=== PATIENT | male | born 1960 | race Caucasian/White ===

== ENCOUNTER 2022-08-08 14:26 | Outpatient (CLI) | payer BC, SELFPAY ==
--- NOTE | ~2022-08-08 | XR_ITS ---
XR cervical spine 4-5V DATE: 08/08/2022 15:03 INDICATION: Neck pain. Burning, tingling between scapulae. TECHNIQUE: AP, open-mouth, lateral, swimmer views COMPARISON: None FINDINGS: C1 and C2 are normally aligned and the odontoid process is intact. No fracture or dislocati on or locked facet or prevertebral soft tissue swelling. Cervical interspaces are preserved. IMPRESSION: No significant abnormality Reviewed, dictated and finalized at location L. ING HAND IMPRESSION: No significant abnormality
== END 2022-08-08 14:27 | disposition home or self-care (01) ==
PROVIDERS: PCP Family Medicine; Visit Provider Family Medicine
DX: M54.12 Radiculopathy, cervical region (principal); M43.02 Spondylolysis, cervical region
CPT/HCPCS: 72050

== ENCOUNTER 2023-11-25 09:53 | Outpatient (CLI) | payer MEDICARE, BC, SELFPAY ==
--- NOTE | ~2023-11-25 | XR_ITS ---
Clinical Indication: Chest pain PA and lateral views of the chest: Comparison: None Findings: The lungs are clear, without evidence of focal consolidation or pleural effusion. Cardiome diastinal silhouette is within normal limits. Bones and soft tissues are unremarkable. Impression: Normal chest. Reviewed, dictated and finalized at location . Impression: Normal chest.
== END 2023-11-25 09:54 | disposition home or self-care (01) ==
PROVIDERS: PCP Family Medicine; Visit Provider Family Medicine
DX: R07.2 Precordial pain (principal)
CPT/HCPCS: 71046

== ENCOUNTER 2024-01-19 09:34 | Outpatient (CLI) | payer MEDICARE, BC, SELFPAY ==
--- NOTE | ~2024-01-19 | NM_ITS ---
EXAMINATION: NM sylvain stress w perfusion DATE: 01/19/2024 11:55 INDICATION: Chest pain on exertion. TECHNIQUE: Rest images were obtained following intravenous administration of 9.44 mCi Tc99m tetrofosm in (Myoview). The patient was infused intravenously with Lexiscan (regadenoson). Then, 30.3 mCi Tc99m tetrofosmin (Myoview) was administered intravenously, and supine and prone stress images were obtain ed. Data was reconstructed into short axis and horizontal and vertical long axis SPECT images. Gated SPECT images were also obtained. COMPARISON: None. FINDINGS: There is a large, severe, reversible perfusion defect involving left ventricular apex, the apical segments, and mid anterior and mid anteroseptal segments, consistent with ischemia. There is no segmental wall motion abnormality. Left ventricular ejection fraction measures 60%. IMPRESSION: 1. Large area of severe ischemia involving left ventricular apex, the apical segments, and mid anteri or and mid anteroseptal segments. 2. Normal left ventricular ejection fraction measuring 60%. Reviewed, dictated and finalized at location A. IMPRESSION: 1. Large area of severe ischemia involving left ventricular apex, the apical se gments, and mid anterior and mid anteroseptal segments. 2. Normal left ventricular ejection fraction measuring 60%.
--- NOTE | 2024-01-19 09:45 | EST_ITS ---
Patient Info Name: Missael Skelton Age: 63 years : 1960 Gender: Male Ht: 71 in Wt: 190 lbs BSA: 2.09 m2 HR: 46 bpm BP: 120 / 78 mmHg Heart Rhythm: Sinus Rhythm Exam Date: 01/19/2024 10:33 AM Exam Location: Echo Lab Patient Status: Outpatient Admit Date: 01/19/2024 Staff Ordering Physician: Kassandra Nicole MD Attending Provider: Kassandra Nicole MD Exercise Technologist: Unique Franz CT Exercise Physician: Gentry Toth DO Exam Type: CA stress test treadmill w NM Study Info Indications Z82.49 - Family history of ischemic heart disease and other diseases of the circulatory system A nuclear stress test was performed. Summary 1. 1. Abnormal Joseph exercise stress test for ischemic ST changes by ECG criteria. 2. 2. Reduced functional capacity, and limited by symptoms and ST depressions. 3. 3. Appropriate HR response to exercise. 4. 4. Appropriate HR recovery at 1 minute post exercise. 5. 5. Nuclear scan to follow and will be reported separately. Please correlate with it. 6. 6. Patient informed of the above results. Protocol: Joseph Stress ECG Details Stage: REST Duration (min): 1 min : 17 sec Speed (mph): 0.0 Grade (%): 0 HR (bpm): 48 SBP (mmHg): 120 DBP (mmHg): 78 METS: --- Stage: REST Duration (min): 11 min : 39 sec Speed (mph): 0.0 Grade (%): 0 HR (bpm): 55 SBP (mmHg): 120 DBP (mmHg): 78 METS: --- Stage: STAGE 1 Duration (min): 1 min : 0 sec Speed (mph): 1.7 Grade (%): 10 HR (bpm): 80 SBP (mmHg): 120 DBP (mmHg): 78 METS: --- Stage: STAGE 1 Duration (min): 2 min : 0 sec Speed (mph): 1.7 Grade (%): 10 HR (bpm): 85 SBP (mmHg): 120 DBP (mmHg): 78 METS: --- Stage: STAGE 1 Duration (min): 3 min : 0 sec Speed (mph): 1.7 Grade (%): 10 HR (bpm): 85 SBP (mmHg): 140 DBP (mmHg): 80 METS: --- Stage: STAGE 2 Duration (min): 1 min : 0 sec Speed (mph): 2.5 Grade (%): 12 HR (bpm): 95 SBP (mmHg): 140 DBP (mmHg): 80 METS: --- Stage: STAGE 2 Duration (min): 2 min : 0 sec Speed (mph): 2.5 Grade (%): 12 HR (bpm): 98 SBP (mmHg): 147 DBP (mmHg): 76 METS: --- Stage: STAGE 2 Duration (min): 3 min : 0 sec Speed (mph): 2.5 Grade (%): 12 HR (bpm): 105 SBP (mmHg): 147 DBP (mmHg): 76 METS: --- Stage: STAGE 3 Duration (min): 0 min : 30 sec Speed (mph): 3.4 Grade (%): 14 HR (bpm): 107 SBP (mmHg): 147 DBP (mmHg): 76 METS: --- Stage: RECOVERY Duration (min): 0 min : 29 sec Speed (mph): 0.0 Grade (%): 0 HR (bpm): 102 SBP (mmHg): 161 DBP (mmHg): 72 METS: --- Stage: RECOVERY Duration (min): 1 min : 29 sec Speed (mph): 0.0 Grade (%): 0 HR (bpm): 63 SBP (mmHg): 161 DBP (mmHg): 72 METS: --- Stage: RECOVERY Duration (min): 2 min : 29 sec Speed (mph): 0.0 Grade (%): 0 HR (bpm): 54 SBP (mmHg): 161 DBP (mmHg): 72 METS: --- Stage: RECOVERY
== END 2024-01-19 09:35 | disposition home or self-care (01) ==
PROVIDERS: PCP Family Medicine; Visit Provider Family Medicine
DX: R07.2 Precordial pain (principal); I99.8 Other disorder of circulatory system; Z82.49 Family history of ischemic heart disease and other diseases of the circulatory system
CPT/HCPCS: 78452; 93017; A9502

== ENCOUNTER 2024-02-09 09:25 | Observation (INO) | payer MEDICARE, BC, SELFPAY ==
[2024-02-09] VITALS (33 sets, daily range): BP systolic 107–149; BP diastolic 50–100; PULSE 46–66; RESP 11–21; TEMP 36.2–37.1; O2SAT 96–100; BMI 26.6
[2024-02-09 07:28] LABS: Basophils Percent Auto 0.5 % (0.2-1.2); Eosinophils Absolute Auto 0.1 K/mm3 (0-0.3); Eosinophils Percent Auto 1.3 % (0-4.4); Hematocrit 46.3 % (42.0-52.0); Hemoglobin 15.2 g/dL (14.0-18.0); Immature Granulocyte Absolute 0.01 K/mm3 (0.00-0.031); Immature Granulocyte Percent A 0.2 % (0-0.5); Lymphocytes Absolute Auto 1.63 K/mm3 (0.9-3.2); Lymphocytes Percent Auto 27.3 % (18.3-44.2); Mean Corpuscular HGB Conc 32.8 g/dl (32-36); Mean Corpuscular Hemoglobin 29.7 pg (26-34); Mean Corpuscular Volume 90.6 fl (80-100); Mean Platelet Volume 10.5 fl (7.4-10.4); Monocytes Absolute Auto 0.5 K/mm3 (0.1-0.6); Monocytes Percent Auto 8.7 % (2.6-8.5); Neutrophils Absolute Auto 3.7 K/mm3 (1.3-6.7); Platelet Count Result 183 k/mm3 (150-375); Red Blood Count 5.11 M/mm3 (4.6-6.20); Red Cell Distribution Width 13.1 % (11.5-14.5)
[2024-02-09 07:42] LABS: Anion Gap 10 mmol/L (4-12); Blood Urea Nitrogen 17 mg/dL (9-20); Calcium 8.8 mg/dL (8.4-10.2); Carbon Dioxide 28 mmol/L (22-30); Chloride 103 mmol/L (98-107); Estimated CRCL calculation 69 ml/min; Estimated Glomerular Filt Rate > 60; Glucose 108 mg/dL (65-110); Sodium 141 mmol/L (137-145)
--- NOTE | 2024-02-09 08:11 | WPDMODSED ---
Moderate Sedation Note-Pt Data Patient Data Diagnosis: Exertional angina Abnormal stress test Present Complaint: Exertional chest pain Procedure to be performed/Plan: Left heart catheterization Allergies Allergy/AdvReac Type Severity Reaction Status Date / Time Latex, Natural Rubber Allergy Rash Verified 02/09/24 07:18 Home Medications Medication Instructions Recorded Confirmed Type aspirin 81 mg tablet,delayed 81 mg PO DAILY #90 tabs 01/19/24 02/09/24 Rx release nitroglycerin 0.4 mg sublingual 0.4 mg sublingual Q5M PRN chest 01/19/24 02/09/24 Rx tablet pain #20 tabs rosuvastatin 10 mg tablet 10 mg PO HS 02/09/24 02/09/24 History Current Medications: Active Medications Sodium Chloride (Normal Saline Iv) 500 mls @ 100 mls/hr IV CONT .Q5H RASHEED Sedation/Anesthesia: No previous sedation/anesthesia problems (including family history). [facility] Past Medical History Medical History (Updated 11/26/23 @ 00:41 by Kassandra Nicole MD) Brachial (cervical) neuritis Colon cancer screening Deviated septum Elevated random blood glucose level Encounter for vitamin deficiency screening Lipid screening Palpitations SCC (squamous cell carcinoma), trunk Strain of left trapezius muscle Tinnitus Family History Family History Sibling Patient's sister is in good health Father Family history of cardiovascular disease Family history of chronic obstructive pulmonary disease Mother Family history of chronic obstructive pulmonary disease Family history of cardiovascular disease Family history of arthritis Social History Social History Social History: Smoking status: Never smoker Second hand tobacco smoke exposure: No Alcohol intake: current Alcohol use details: Rarely Substance use: never Substance use type: does not use Do You Feel Safe in your Home?: Yes Lack of Transportation: No Lack of Food: Never True Current Housing: I Have Housing Concerned About Future Housing: No Difficulty Paying Gas/Electric Bills: No Difficulty Paying for Meds: No Currently Unemployed: No Education: Don't Know Difficulty w/ Childcare or Family Care: No Living arrangements: with family Occupation/Education: retired Gender identity (if verbalized by the patient): Male Sexual Orientation (if Verbalized by the Patient): Straight or Heterosexual Spiritual care concerns: No Mod Sed Physical Exam Physical Exam Pre Procedural Exam: Normal: Appearance, Throat, Airway, Lungs, Heart Size, Heart Rate, Heart Rhythm, Neuro Exam and Extremities Hours since solid foods: 12 Hours since liquid intake: 12 Mallampati Classification: class II Internal Medicine - PN: Obj Da Vital Signs Vital Signs: Vital Signs - 24 hr 02/09/24 07:00 Temperature 36.2 C L Pulse Rate 60 Respiratory Rate 12 Blood Pressure 137/72 Pulse Oximetry 96 Oxygen Delivery Room Air Intake/Output Intake/Output: Intake & Output 02/06/24 02/07/24 02/08/24 02/09/24 23:59 23:59 23:59 23:59 Intake Total 0 Balance 0 Meds/Results Medications: Active Medications Generic Name Dose Route Start Last Admin Trade Name Freq PRN Reason Stop Dose Admin Sodium Chloride 500 mls @ 100 mls/hr 02/09/24 07:00 Normal Saline Iv IV CONT .Q5H RASHEED Labs 02/09/24 07:23 02/09/24 07:23 Labs: Laboratory Results - last 24 hr 02/09/24 07:23 WBC 6.0 RBC 5.11 Hgb 15.2 Hct 46.3 MCV 90.6 MCH 29.7 MCHC 32.8 RDW 13.1 Plt Count 183 MPV 10.5 H Immature Gran % (Auto) 0.2 Neut % (Auto) 62.0 Lymph % (Auto) 27.3 [place] % (Auto) 8.7 H Eos % (Auto) 1.3 Baso % (Auto) 0.5 Lymph # (Auto) 1.63 [place] # (Auto) 0.5 Eos # (Auto) 0.1 Baso # (Auto) 0.0 Abs Immat Gran (auto) 0.01 Absolute Neuts (auto) 3.7 Absolute Nucleated RBC 0.000 Nucleated RB
--- NOTE | 2024-02-09 09:25 | ECG_ITS ---
Test Date: 2024-02-09 13:15:27 Measurements Intervals [place] Rate: 49 P: 43 LA: 162 QRS: 59 QRSD: 114 T: 30 QT: 421 QTc: 382 Interpretive Statements SINUS BRADYCARDIA INTRAVENTRICULAR CONDUCTION DELAY ABNORMAL ECG No previous ECG available for comparison Electronically Signed On 02-09-2024 13:18:07 CDT by Gentry Toth D.O.
--- NOTE | 2024-02-09 09:34 | WPDCARDPROC ---
Cardiac Cath Procedure Note Date of procedure:: 02/09/24 Performing physician:: Paulie Fuentes MD Indication:: exertional angina abnormal stress test Brief clinical history:: this is a 63-year-old man with a 6-9 month history of exertional chest pain typical of angina. A recent exercise nuclear stress test was abnormal consistent with anterior ischemia. In this setting angiography has been recommended Procedure Procedure performed:: left ventriculography coronary angiography PCI (HOLLAND) to proximal LAD Sedation/Medication given:: fentanyl 50 mg Versed 2 mg case start time 8:46 a.m. case end time 9:20 a.m. sedation provided by Kristen Garner RN, trained observer Access site:: right femoral artery Estimated blood loss:: 20 cc Procedure note:: patient was brought to the cardiac catheterization lab in the postabsorptive state where the right femoral triangle was prepared and draped in the normal fashion. Anesthesia was provided with 1% lidocaine infiltrated. Seldinger technique a 5 Monegasque vascular sheath was placed. After this left heart catheterization was carried out. A 5 Monegasque angled pigtail catheter perform left ventriculography in the SHERMAN projection and document left-sided filling pressures. Pullback pressures were documented across the aortic valve. The left coronary artery was engaged and injected using a standard 5 [place]gas[place] FL4 catheter. The right coronary was engaged and injected using a standard 5 [place]gas[place] JR4 catheter. Following this the cineangiograms were reviewed. PCI of proximal LAD was then recommended and carried out as detailed. Prior to PCI the 5 Monegasque sheath was upsized over a guidewire for 6 Monegasque sheath. The patient received 325 mg of aspirin and 600 mg of clopidogrel orally and was anticoagulated with bolus and infusion of Angiomax for this PCI. Following the procedure the sheath was sutured into position the patient was taken to the holding area for post PCI, stent recovery. The procedure was well tolerated and uncomplicated there was no evidence of groin hematoma when he left the cardiac catheterization lab. Findings:: Hemodynamics: Central aortic pressure is 104/44, left ventricle 104/ 80 end-diastolic pressure 12 there is no gradient on pullback across the aortic valve. Left ventricle: The LV is normal in size all segments contract properly the global ejection fraction is 60-65% by visual estimation the left main coronary artery is widely patent the left anterior descending is a medium caliber vessel extending down to the apex. There is high-grade stenosis of 95% in the proximal LAD prior to any diagonal or septal branches. The remainder of the LAD is free of significant disease. The circumflex is a moderate caliber artery giving rise to the marginal branches and is smooth and angiographically normal in appearance the right coronary artery is large caliber and dominant to the posterior circulation the right coronary artery is angiographically smooth and normal in appearance intervention: The left coronary was engaged using a 6 Monegasque CLS 3.5 guiding catheter. I used a 0.014 BMW guidewire to traverse the lesion was advanced easily into the distal LAD. The lesion was pre-dilated using a 2.5 x 15 mm Panterra balloon at nominal pressure and then was stented using a 3.5 x 22 mm Orsiro [place] stent at nominal pressure which resulted in excellent angiographic appearance with no residual stenosis disruption dissection or distal embolization. Conclusion:: 1. Right coronary dominant circulation was single-vessel coronary disease with high-grade 95% stenosis in proximal LAD. 2. Normal left ventricular systolic function 3. successful revascularization using the 3.5 x 22 mm Orsiro drug-eluting stent with an excellent anatomical result. Paulie Fuentes MD [facility]
--- NOTE | 2024-02-09 17:55 | ADMGEN ---
This patient, Missael Skelton, was admitted to IMU Room 232-01. Patient/family oriented to hospital policies and general routines including ID bracelet, bed and alarms, visiting hours, pain management, procedures, bathroom and other care routines, personal items, smoking policy, room service/diet, and visiting hours. Information on how to activate the Rapid Response Team has been discussed. Patient/Family are encouraged to report perceived risks to care and to ask questions if they do not understand what they are told or what they should do.
[2024-02-09] MEDS: ROSUVASTATIN 10 MG TABLET 20 MG PO (18:07)
--- NOTE | 2024-02-09 19:31 | PC.NURSE ---
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 pt had cardiac cath earlier today. Right groin with dressing CDI,area soft,no hematoma +2 pedal pulses- pt oriented to room and routines of floor; Monitor SR 60's
[2024-02-09 20:20] LABS: Cholesterol 154 mg/dL (0-200); HDL Direct 61 mg/dL; Triglycerides 85 mg/dL (<150)
[2024-02-09 20:31] LABS: LDL Cholesterol Direct 72 mg/dL
[2024-02-10] VITALS (12 sets, daily range): BP systolic 114–132; BP diastolic 50–69; PULSE 55–82; RESP 12–20; TEMP 36.3–36.5; O2SAT 97–99
--- NOTE | 2024-02-10 05:11 | ECG_ITS ---
Test Date: 2024-02-10 09:03:40 Measurements Intervals [place] Rate: 60 P: 33 KS: 159 QRS: 42 QRSD: 113 T: 30 QT: 398 QTc: 398 Interpretive Statements SINUS RHYTHM INCOMPLETE RIGHT BUNDLE BRANCH BLOCK BASELINE ARTIFACT- I, II, III, AVR, AVL, AVF, V1 BORDERLINE ECG Compared to ECG 02/09/2024 13:15:27 Sinus bradycardia no longer present Electronically Signed On 02-10-2024 09:11:32 CDT by Gentry Toth D.O.
[2024-02-10] MEDS: CLOPIDOGREL BISULFATE 75 MG TABLET PO (08:52)
[2024-02-10] MEDS: METOPROLOL SUCCINATE EXT REL 25 MG TABCR PO (08:52)
[2024-02-10] MEDS: ASPIRIN 81 MG CHEWABLE TABLET PO (08:52)
--- NOTE | 2024-02-10 09:47 | PM.DS ---
DS: Admitting Diagnosis Discharge Date 02/10/2024 Admitting Diagnosis CAD DS: Discharge Diagnosis Discharge Diagnosis (1) CAD (coronary artery disease): Code(s): I25.10 - Atherosclerotic heart disease of [place] coronary artery without angina pectoris Status: Acute Assessment and Plan: Coronary angiogram recommended because of positive nuclear stress test as an outpatient. [facility] findings as follows: 1. Right coronary dominant circulation was single-vessel coronary disease with high-grade 95% stenosis in proximal LAD. 2. Normal left ventricular systolic function 3. successful revascularization using the 3.5 x 22 mm Orsiro drug-eluting stent with an excellent anatomical result. Continue DAPT with ASA indefinitely, Plavix for 1 year. Continue aggressive risk factor modification for CAD Cardiac rehab Stable and appropriate for discharge today. DS: Summary Hospital Course Hospital Course: Admitted after elective outpatient coronary angiogram with PCI/HOLLAND x 1 to the LAD Uneventful recovery Stable and asymptomatic today Plan for discharge today with close cardiology follow up Time Spent with Patient Time attestation: Total time spent providing and/or coordinating discharge services: Exam Const: General: comfortable, no acute distress, alert and awake Orientation/consciousness: patient oriented x3 HENMT: Head: normal to inspection Eyes: General: appearance normal, both eyes and all related structures Pupils: Equal, round and reactive pupils present Neck: Neck: normal visual inspection, supple and no JVD Carotids: normal carotid upstroke Resp: Effort & Inspection: normal respiratory effort Auscultation: clear to auscultation bilaterally Cardio: Rate: regular rate Rhythm: regular rhythm Heart sounds: S1 normal heart sound present, S2 normal heart sound present and no murmurs GI: Auscultation: normal bowel sounds Skin: General skin exam: normal color Neuro: General: patient oriented x3 Cranial nerves: Yes Equal, round and reactive pupils present Extrem: General: normal to inspection Other: good distal pulses. Arterial access site free from bleeding, hematoma, pain. Psych: Appearance: grossly normal Mental Status: mental status grossly normal DS: Data Data Completed and Pending Labs on day of discharge: Labs from last 24 hours 02/09/24 07:23 Triglycerides 85 Cholesterol 154 LDL Cholesterol Direct 72 HDL Direct 61 Discharge Plan Discharge Consulting providers: Zenobia Evans; Gentry Toth Discharging Clinician: Zenobia Evans Patient Disposition: Home, Self-Care Activity: other - see discharge instructions Diet: heart healthy Wound Care Instructions: other - see discharge instructions Discharge Instructions: [facility] [address] [place] [address] DISCHARGE INSTRUCTIONS - POST PCI Activity 1. No driving until 02/12/24. 2. No lifting, pushing or pulling more than 10 pounds for 1 week. 3. No strenuous exercise or activity (including sexual activity) until you are released to do so. 4. May shower but no tub baths or swimming pool for 1 week. Avoid hot tubs. Medications DO NOT STOP YOUR MEDICATIONS ONLY YOUR INSTALLATION SERVICE REPRESENTATIVE CAN STOP THE FOLLOWING MEDICATIONS - PLEASE CALL THE OFFICE WITH QUESTIONS. *Aspirin *Rosuvastatin *Metoprolol *Clopidogrel (Plavix) Important Reminders 1. Keep your stent card in your wall
[2024-02-10 12:30] LABS: Glucose Point of Care 171 mg/dl (65-105)
== END 2024-02-10 14:44 | disposition home or self-care (01) ==
LOC: ANHIMU 17:49
PROVIDERS: Admitting Provider Specialist; PCP Family Medicine; Visit Provider Specialist
PROC: 4A023N7 Measurement of Cardiac Sampling and Pressure, Left Heart, Percutaneous Approach (ICD-10-PCS; CPT 93452; principal; 2024-02-09 08:30)
DX: I25.10 Atherosclerotic heart disease of native coronary artery without angina pectoris (principal); R94.39 Abnormal result of other cardiovascular function study; Z79.82 Long term (current) use of aspirin
CPT/HCPCS: 36415; 80048; 80061; 82948; 85025; 93005; 93458; A9270; C1725; C1769; C1874; C1887; C1894; C9600; G0378; G0379; J0583; J1644; J2250; J3010

== ENCOUNTER 2024-09-09 10:35 | Outpatient (CLI) | payer MEDICARE, BC, SELFPAY ==
--- OUTSIDE RECORDS SUMMARY | 2024-09-09 11:02 | XMS_ITS | Patient Health Summary ---
Author Organization [facility] Address [address] [place] [address] Care Team Providers Care Paper Tester Name Role Phone Unavailable Primary Care Provider Unavailabl e Note from [facility],non-owned Affiliates and Associated Physician Practices is amultiple site organization consisting of ambulatory clinics and hospital sitesin [place], [place], [place] and [place]. This disclosure is being madepursuant to the Care Everywhere program and may not contain all information available regarding this patient. Last updated 18.[facility] Social History Tobacco Use Types Packs/Day Years Used Date Smoking Tobacco: Never Assessed Sex and Gender Information Value Date Recorded Sex Assigned at Not on file Gender Identity Not on file Sexual Orientation Not on file Procedures * DERMATOPATHOLOGY(Performed 01/15/2024) * DERMATOPATHOLOGY(Performed 11/25/2023) * DERMATOPATHOLOGY(Performed 08/13/2021) * DERMATOPATHOLOGY(Performed 02/01/2021) * DERMATOPATHOLOGY(Performed 10/04/2019) * DERMATOPATHOLOGY(Performed 02/24/2019) Results * DERMATOPATHOLOGY (01/15/2024 3:34 PM CDT) Only the most recent of6 resultswithin the time period is included. Case Report Dermatopathology Report Case: [id number] Authorizing Provider: Annette Isaac DO Collected: 01/15/2024 03:34 PM Ordering Location: [facility] - Received: 01/19/2024 09:07 AM DermPath Lab Pathologist: Esperanza Florence MD Specimen: Skin, left upper abdomen 4 2:50 PM CDT DERMATOPATHOLOGY LABORATORY Final Diagnosis Specimen A. SKIN, left upper abdomen: DERMAL SCAR RESIDUAL MELANOCYTIC PROLIFERATION NOT IDENTIFIED (L90.5) 4 2:50 PM CDT DERMATOPATHOLOGY LABORATORY Clinical History Bx PROVEN MELANOCYTIC PROLIFERATION 4 2:50 PM CDT DERMATOPATHOLOGY LABORATORY Gross Description Specimen A: Received is one formalin filled container labeled with the patient's name and designated left upper abdomen. The specimen consists of a non-oriented ellipse of skin measuring 64L68X2 mm. The epidermal surface is unremarkable. The margin is inked green. The 12 o'clock and 6 o'clock tips are submitted in cassette 1. The remainder of the ellipse is serially sectioned and submitted in cassette 2-3. Jar 0. 4 2:50 PM CDT DERMATOPATHOLOGY LABORATORY Microscopic Description Specimen A. SKIN, left upper abdomen: There are fibroblasts and collagen bundles oriented parallel to the skin surface. There are elongated blood vessels, some of which are oriented perpendicular to the skin surface. No residual melanocytic proliferation is identified. 4 2:50 PM CDT DERMATOPATHOLOGY LABORATORY Disclaimer An external and internal positive and negative controls are appropriate for the histochemical, immunohistochemical and immunofluorescence stain(s) in this case (if any), except where stated explicitly. The performance characteristics of the stain(s) cited in this report were developed and its performance characteristic determined by the Dermatopathology Laboratory at [facility], directed by Dr. Ye Price. These tests need not be, and therefore are not, approved by the [place] Food and Drug Administration. The tests are used for clinical purposes. Billing Codes Specimen Charges Stain Charges 56039 1 4 2:50 PM CDT DERMATOPATHOLOGY LABORATORY Embedded Images 2:50 PM CDT DERMATOPATHOLOGY LABORATORY Pathology/Cytolo gy TISSUE SPECIMEN FROM SKIN / Unknown 01/15/2024 3:34 PM CDT 01/19/2024 9:07 AM CDT Annette Isaac DO LAB - PATHOLOGY/C YTOLOGY ORDERABLES DERMATOPATHOLOGY LABORATORY [facility] - Department of Dermatology [address], [address] [phone]
--- OUTSIDE RECORDS SUMMARY | 2024-09-09 11:02 | XMS_ITS | Referral Summary ---
Author Organization [facility] Address [address] [place] [address] Care Team Providers Care Tripe Cooker Name Role Phone Unavailable Primary Care Provider Unavailabl e Source Comments [facility],non-owned Affiliates and Associated Physician Practices is amultiple site organization consisting of ambulatory clinics and hospital sitesin [place], [place], [place] and [place]. This disclosure is being madepursuant to the Care Everywhere program and may not contain all information available regarding this patient. Last updated 18.[facility] Social History Tobacco Use Types Packs/Day Years Used Date Smoking Tobacco: Never Assessed Sex and Gender Information Value Date Recorded Sex Assigned at Not on file Gender Identity Not on file Sexual Orientation Not on file Plan of Treatment Not on file
--- OUTSIDE RECORDS SUMMARY | 2024-09-09 11:02 | XMS_ITS | Clinical Summary ---
Author Organization [facility] Address [address] [place] [address] Care Team Providers Care Round Up Ring Hand Name Role Phone Unavailable Primary Care Provider Unavailabl e Source Comments [facility],non-owned Affiliates and Associated Physician Practices is amultiple site organization consisting of ambulatory clinics and hospital sitesin [place], [place], [place] and [place]. This disclosure is being madepursuant to the Care Everywhere program and may not contain all information available regarding this patient. Last updated 18.[facility] [employer] Social History Tobacco Use Types Packs/Day Years Used Date Smoking Tobacco: Never Assessed Sex and Gender Information Value Date Recorded Sex Assigned at Not on file Gender Identity Not on file Sexual Orientation Not on file Plan of Treatment Health Maintenance Due Date Last Done Comments COLOGUARD (AGES 45-75) - COL ON CA SCREENING 1958 COLON MONITORING 1958 COLONOSCOPY - COLON CA SCREENING 1958 CT COLONOGRAPHY - COLON CA SCREENING 1958 Colorectal Cancer Screening 1958 FIT - COLON CA SCREENING 1958 FLEX SIG - COLON CA SCREENING 1958 LIPID TESTING 1958 MEDICARE AWV 12 MONTHS 1958 HIV SCREENING 1973 HEPATITIS C SCREENING 12/04/1976 DTAP/TDAP/TD VACCINES (1 - Tdap) 1977 PNEUMOCOCCAL VACCINE 50+ (1 of 1 - PCV) 2008 ZOSTER VACCINE (1 of 2) 2008 COVID-19 VACCINE ( - 2023-2 5 season) 2024 INFLUENZA VACCINE (#1) 2024 DEPRESSION SCREENING 07/21/2024 Respiratory Syncytial Virus (RSV) Vaccine Pt: or over 60 yrs (1 - 1-dose 75+ series) 2033 HEPATITIS B VACCINE Aged Out No longe r eligible based on patient's age to complete this topic HIB VACCINE Aged Out No longer eligi ble based on patient's age to complete this topic HPV VACCINE Aged Out No longer eligi ble based on patient's age to complete this topic MENINGOCOCCAL (Group B) VACCINE Aged Out No longer eligible based on patient's age to complete this topic MENINGOCOCCAL VACCINE Aged Out No dontae zoie eligible based on patient's age to complete this topic
--- OUTSIDE RECORDS SUMMARY | 2024-09-09 11:02 | XMS_ITS | Encounter Summary ---
Author Organization [facility] Address [address] [place] [address] Care Team Providers Care Counseling Psychologist Name Role Phone Unavailable Primary Care Provider Unavailabl e Encounter Details Date Type Department Care Team (Late st Contact Info) Description 01/15/2024 Lab Requisition [facility]ician [facility] - DermPath Lab [address] [facility], [place] [address] Annette Isaac DO [address] [facility] 3 [place] [address] Social History Tobacco Use Types Packs/Day Years Used Date Smoking Tobacco: Never Assessed Sex and Gender Information Value Date Recorded Sex Assigned at Not on file Gender Identity Not on file Sexual Orientation Not on file documented as of this encounter Plan of Treatment Not on file documented as of this encounter Procedures Procedure Name Priority Date/Time Associated Diagnosis Comments DERMATOPATHOLOGY Routine 01/15/2024 3:34 PM CDT documented in this encounter Results * DERMATOPATHOLOGY (01/15/2024 3:34 PM CDT) Case Report Dermatopathology Report Case: [id number] Authorizing Provider: Annette Isaac DO Collected: 01/15/2024 03:34 PM Ordering Location: [facility] Physician [facility] - Received: 01/19/2024 09:07 AM DermPath Lab [...] of a non-oriented ellipse of skin measuring 71Y94K2 mm. The epidermal surface is unremarkable. The [...] surface. No residual melanocytic proliferation is identified. 2:50 PM CDT DERMATOPATHOLOGY LABORATORY Disclaimer An external and internal positive and negative controls are appropriate for the histochemical, immunohistochemical and immunofluorescence stain(s) in this case (if any), except where stated explicitly. The performance characteristics of the stain(s) cited in this report were developed and its performance characteristic determined by the Dermatopathology Laboratory at [facility], directed by Dr. Ye Price. These tests need not be, and therefore are not, approved by the [place] Food and Drug Administration. The tests are used for clinical purposes. Billing Codes Specimen Charges Stain Charges 98175 1 4 2:50 PM CDT DERMATOPATHOLOGY LABORATORY Embedded Images 2:50 PM CDT DERMATOPATHOLOGY LABORATORY Pathology/Cytolo gy TISSUE SPECIMEN FROM SKIN / Unknown 01/15/2024 3:34 PM CDT 01/19/2024 9:07 AM CDT Annette Isaac DO LAB - PATHOLOGY/C YTOLOGY ORDERABLES DERMATOPATHOLOGY LABORATORY [facility] - Department of Dermatology [address], [address]rd [place] [address], [facility] [phone] documented in this encounter Visit Diagnoses Not on filedocumented in this encounter
--- OUTSIDE RECORDS SUMMARY | 2024-09-09 11:02 | XMS_ITS | Clinical Summary ---
Author Organization [facility] Address [address] [place] [address] Care Team Providers Care Pharmacist Hospital Name Role Phone Kassandra Nicole MD Primary Care Provider [phone] Social History Tobacco Use Types Packs/Day Years Used Date Smoking Tobacco: Never Assessed Sex and Gender Information Value Date Recorded Sex Assigned at Not on file Legal Sex Male 4:54 PM CDT Gender Identity Not on file Sexual Orientation Not on file Plan of Treatment Health Maintenance Due Date Last Done Comments Colorectal Cancer Screening Colonoscopy (10 Years) 1958 Hepatitis C 1976 DTaP, Tdap and Td Vaccines ( 1 - Tdap) 1977 Zoster Vaccines (1 of 2) 2008 Pneumococcal Vaccine: 65+ Ye ars (1 of 1 - PCV) 12/10/2023 COVID-19 Vaccine ( - 2023-2 5 season) 2024 Influenza Adult (#1) 2024 RSV Immunization or 60+ Years (1 - 1-dose 75+ series) 2033 Meningococcal B Vaccine Aged Out No l onger eligible based on patient's age to complete this topic Meningococcal Vaccine Aged Out No dontae zoie eligible based on patient's age to complete this topic Pneumococcal Vaccine: Pediat rics (0 to 5 Years) and At-Risk Patients (6 to 64 Years) Aged Out No longer eligible b ased on patient's age to complete this topic RSV Immunizations Under 20 Months Aged Out No longer eligible based on patient's age to complete this topic Insurance MEDICARE [facility] Care Teams Pharmacist Hospital Relationship Specialty Start Date End Date Kassandra Nicole MD [address] [facility] [address] [place] [address] PCP - General FAMILY PRACTICE 11/11/23
--- OUTSIDE RECORDS SUMMARY | 2024-09-09 11:02 | XMS_ITS | Encounter Summary ---
Author Organization [facility] Address [address] [facility] [place] [address] Care Team Providers Care Industrial Maintenance Mechanic Name Role Phone Unavailable Primary Care Provider Unavailabl e Encounter Details Date Type Department Care Team (Late st Contact Info) Description 10/04/2019 Lab Requisition [facility] DermPath Lab [address] [facility], [place] [address] Annette Isaac DO [address] [facility] 3 [place] [address] Social History Tobacco Use Types Packs/Day Years Used Date Smoking Tobacco: Never Assessed Sex and Gender Information Value Date Recorded Sex Assigned at Not on file Gender Identity Not on file Sexual Orientation Not on file documented as of this encounter Plan of Treatment Not on file documented as of this encounter Procedures Procedure Name Priority Date/Time Associated Diagnosis Comments DERMATOPATHOLOGY Routine 10/04/2019 12:0 0 AM CDT documented in this encounter Results * DERMATOPATHOLOGY (10/04/2019 12:00 AM CDT) Case Report Dermatopathology Report Case: [id number] Authorizing Provider: Annette Isaac DO Collected: 10/04/2019 12:00 AM Ordering Location: [facility] DermPath Lab Received: 10/04/2019 11:40 AM Pathologist: Esperanza Florence MD Specimen: Skin, left anterior LE 0 2:53 PM CDT DERMATOPATHOLOGY LABORATORY Final Diagnosis Specimen A. SKIN, left anterior LE: BASAL CELL CARCINOMA, SUPERFICIAL MULTIFOCAL (C44.719) 0 2:53 PM CDT DERMATOPATHOLOGY LABORATORY Clinical History R/O NMSC. 0 2:53 PM CDT DERMATOPATHOLOGY LABORATORY Gross Description Specimen A: Received is one formalin filled container labeled with the patient's name and designated left anterior LE. The specimen consists of a shave biopsy measuring 6x5x1 mm. Jar 0. 0 2:53 PM T DERMATOPATHOLOGY LABORATORY Microscopic Description Specimen A. SKIN, left anterior LE: Attached to the undersurface of the epidermis, there are small aggregates of basaloid cells with a high nuclear to cytoplasmic ratio and peripheral palisading. 0 2:53 PM CDT DERMATOPATHOLOGY LABORATORY Disclaimer An external and internal positive and negative controls are appropriate for the histochemical, immunohistochemical and immunofluorescence stain(s) in this case (if any), except where stated explicitly. The performance characteristics of the stain(s) cited in this report were developed and its performance characteristic determined by the Dermatopathology Laboratory at [facility], directed by Dr. Ye Price. These tests need not be, and therefore are not, approved by the [place] Food and Drug Administration. The tests are used for clinical purposes. Billing Codes Specimen Charges Stain Charges 39524 1 0 2:53 PM CDT DERMATOPATHOLOGY LABORATORY Embedded Images 0 2:53 PM CDT DERMATOPATHOLOGY LABORATORY Pathology/Cytolog y TISSUE SPECIMEN FROM SKIN / Unknown 10/04/2019 10/04/2019 11:40 AM CDT Annette Isaac DO LAB - PATHOLOGY/C YTOLOGY ORDERABLES DERMATOPATHOLOGY LABORATORY [facility] - Department of Dermatology [address] [place] [address] 5th Floor Lab B [place], [place] [id number] [place] [address] documented in this encounter Visit Diagnoses Not on filedocumented in this encounter
--- OUTSIDE RECORDS SUMMARY | 2024-09-09 11:02 | XMS_ITS | Encounter Summary ---
Author Organization [facility] Address [address] [facility] [place] [address] Care Team Providers Care Risk Control Director Name Role Phone Unavailable Primary Care Provider Unavailabl e Encounter Details Date Type Department Care Team (Late st Contact Info) Description 02/25/2019 Lab Requisition [facility] DermPath Lab [address] [facility], [place] [address] Annette Isaac DO [address] [facility] [address] [place] [address] Social History Tobacco Use Types Packs/Day Years Used Date Smoking Tobacco: Never Assessed Sex and Gender Information Value Date Recorded Sex Assigned at Not on file Gender Identity Not on file Sexual Orientation Not on file documented as of this encounter Plan of Treatment Not on file documented as of this encounter Procedures Procedure Name Priority Date/Time Associated Diagnosis Comments DERMATOPATHOLOGY Routine 02/24/2019 12:0 0 AM CDT documented in this encounter Results * DERMATOPATHOLOGY (02/24/2019 12:00 AM CDT) Case Report Dermatopathology Report Case: [id number] Authorizing Provider: Annette Isaac DO Collected: 02/24/2019 12:00 AM Ordering Location: [facility] DermPath Lab Received: 02/25/2019 06:19 AM Pathologist: Aislinn Sathl MD Specimens: A) - Skin, right preauricular B) - Skin, left upper arm C) - Skin, right anterior LE 9 1:24 PM CDT DERMATOPATHOLOGY LABORATORY Final Diagnosis Specimen A. 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 SKIN, left upper arm: JUNCTIONAL MELANOCYTIC NEVUS, IRRITATED (D22.62) DERMAL FIBROSIS (L90.5) (see microscopic description) Specimen C. 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 B: Nevus R/O atypia. C: R/O NMSC. 1:24 PM T DERMATOPATHOLOGY LABORATORY Gross Description Specimen A: Received is one formalin filled container labeled with the patient's name and designated right preauricular. The specimen consists of a shave measuring 5k5g4xd. Jar 0. Specimen B: Received is one formalin filled container labeled with the patient's name and designated left upper arm. The specimen consists of a shave measuring 9b1v4wi. Jar 0. Specimen C: Received is one formalin filled container labeled with the patient's name and designated right anterior LE. The specimen consists of a shave measuring 6v1k8me. Jar 0. 1:24 PM CDT DERMATOPATHOLOGY LABORATORY Microscopic Description Specimen A. SKIN, right preauricular: The epidermis is eroded. There are nests of cytologically bland melanocytes within the dermis that mature with depth. Specimen B. SKIN, left upper arm: There are nests of melanocytes at the dermal-epidermal junction, highlighted by an immunostain for MART-1/Melan-A. There is melanin pigment in the stratum corneum. There is focal dermal fibrosis. Additional deeper sections were obtained and reviewed. Specimen C. SKIN, right anterior LE: The epidermis shows parakeratosis, full thickness disorderly maturation of keratinocytes, mitoses at different levels, and dyskeratotic cells. 1:24 PM T DERMATOPATHOLOGY LABORATORY Disclaimer An external and internal positive and negative controls are appropriate for the histochemical, immunohistochemical and immunofluorescence stain(s) in this case (if any), except where stated explicitly. The performance characteristics of the stain(s) cited in this report were developed and its performance characteristic determined by the Dermatopathology Laboratory at [facility], directed by Dr. Ye Price. These tests need not be, and therefore are not, approved by the [place] Food and Drug Administration. The tests are used for clinical purposes. Billing Codes Specimen Charges Stain Charges 78326 24416 66785 1 1 1 42787 1 9 1:24 PM CDT DERMATOPATHOLOGY LABORATORY Embedded Images 9 1:24 PM CDT DERMATOPATHOLOGY LABORATORY Pathology/Cytology TISSUE SPECIMEN FROM SKIN / Unknown 02/24/2019 02/25/2019 6:19 AM CDT Miscellaneous samples (specimen) TISSUE SPECIMEN FROM SKIN / Unknown 02/24/2019 02/25/2019 6:19 AM CDT Miscellaneous samples (specimen) TISSUE SPECIMEN FROM SKIN / Unknown 02/24/2019 02/25/2019 6:19 AM CDT Annette Isaac DO LAB - PATHOLOGY/C YTOLOGY ORDERABLES DERMATOPATHOLOGY LABORATORY [facility] - Department of Dermatology [address] [place] [address] 5th Floor Lab B [address] [phone] documented in this encounter Visit Diagnoses Not on filedocumented in this encounter
--- OUTSIDE RECORDS SUMMARY | 2024-09-09 11:02 | XMS_ITS | Clinical Summary ---
Author Organization [facility] Address [address] 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
--- OUTSIDE RECORDS SUMMARY | 2024-09-09 11:02 | XMS_ITS | Encounter Summary ---
Author Organization [facility] Address [address] [facility] [place] [address] Care Team Providers Care Aircraft Technician Name Role Phone Unavailable Primary Care Provider Unavailabl e Encounter Details Date Type Department Care Team (Late st Contact Info) Description 11/25/2023 Lab Requisition [facility] Physician Group - DermPath Lab [address] [facility], [place] [address] Annette Isaac DO [address] [facility] [address]L [place] [address] Social History Tobacco Use Types Packs/Day Years Used Date Smoking Tobacco: Never Assessed Sex and Gender Information Value Date Recorded Sex Assigned at Not on file Gender Identity Not on file Sexual Orientation Not on file documented as of this encounter Plan of Treatment Not on file documented as of this encounter Procedures Procedure Name Priority Date/Time Associated Diagnosis Comments DERMATOPATHOLOGY Routine 11/25/2023 1:42 PM CDT documented in this encounter Results * DERMATOPATHOLOGY (11/25/2023 1:42 PM CDT) Case Report Dermatopathology Report Case: [id number] Authorizing Provider: Annette Isaac DO Collected: 11/25/2023 01:42 PM Ordering Location: [facility] Physician [facility] - Received: 11/26/2023 01:20 PM DermPath Lab Pathologist: Esperanza Florence MD Specimens: A) - Skin, left upper abdomen B) - Skin, left lower back 1:40 PM CDT DERMATOPATHOLOGY LABORATORY Final Diagnosis Specimen A. SKIN, left upper abdomen: COMPOUND MELANOCYTIC PROLIFERATION, INFLAMED; NOT PRESENT AT SAMPLED MARGIN (D48.5) (see microscopic description and comment) Specimen B. SKIN, left lower back: LENTIGINOUS MELANOCYTIC NEVUS, COMPOUND TYPE, IRRITATED (D22.5) (see microscopic description and comment) 1:40 PM [facility] DERMATOPATHOLOGY LABORATORY Clinical History A-B: Nevus R/O atypia; irregular color; irregular border. 1:40 PM [facility] DERMATOPATHOLOGY LABORATORY Gross Description Specimen A: Received is one formalin filled container labeled with the patient's name and designated left upper abdomen. The specimen consists of a shave biopsy measuring 7x7x1 mm. Jar 0. Specimen B: Received is one formalin filled container labeled with the patient's name and designated left lower back. The specimen consists of a shave biopsy measuring 11x8x1 mm. Jar 0. 1:40 PM [facility] DERMATOPATHOLOGY LABORATORY Microscopic Description Specimen A. SKIN, left upper abdomen: Sections show a compound melanocytic proliferation. There is a lentiginous proliferation of melanocytes between irregular nests. Scattered melanocytes show evidence of upward migration within the epidermis. The melanocytes are large and have a brayan cytoplasm. The dermis shows scattered small nests of cytologically similar melanocytes. There is a lymphohistiocytic infiltrate within the dermis. By immunohistochemistr y, lesional cells are highlighted by MART-1/MelanA. P16 is positive in lesional cells. PRAME is not overexpressed in lesional cells (1+). COMMENT: Although the architecture of this lesion is reassuring, the cytology is worrisome. As this lesion appears completely excised in the sampled sections, clinicopathologic correlation is recommended as to complete removal. This specimen was also reviewed by Dr.Gillian Newman, who agrees. Specimen B. SKIN, left lower back: This is a compound nevus. There is melanin pigment within the stratum corneum. There is a lentiginous proliferation of melanocytes between nests of cells along the dermal-epidermal junction, highlighted by MART-1/Melan-A immunohistochemical staining. There is underlying fibroplasia of the papillary dermis. The intradermal component is bland appearance and matures with depth. (Compound Lucio's Nevus) This lesion is present at the margin of the specimen. COMMENT: If this specimen is sampled from a larger lesion, these findings may not be computer help desk representative of the entire lesion. Clinicopathologic correlation is recommended. 1:40 PM CDT DERMATOPATHOLOGY LABORATORY Disclaimer An external and internal positive and negative controls are appropriate for the histochemical, immunohistochemical and immunofluorescence stain(s) in this case (if any), except where stated explicitly. The performance characteristics of the stain(s) cited in this report were developed and its performance characteristic determined by the Dermatopathology Laboratory at [facility], directed by Dr. Ye Price. These tests need not be, and therefore are not, approved by the [place] Food and Drug Administration. The tests are used for clinical purposes. Billing Codes Specimen Charges Stain Charges 91451 54333 1 1 97642 14673 77809 91630 94310 14829 1 1 1 1 1 1 4 1:40 PM CDT DERMATOPATHOLOGY LABORATORY Embedded Images 1:40 PM CDT DERMATOPATHOLOGY LABORATORY Pathology/Cytology TISSUE SPECIMEN FROM SKIN / Unknown 11/25/2023 1:42 PM CDT 11/26/2023 1:20 PM CDT Miscellaneous samples (specimen) TISSUE SPECIMEN FROM SKIN / Unknown 11/25/2023 1:42 PM CDT 11/26/2023 1:20 PM CDT Annette Isaac DO LAB - PATHOLOGY/C YTOLOGY ORDERABLES DERMATOPATHOLOGY LABORATORY [facility] - Department of Dermatology [facility] Medicine [address] [place] [address], [address]rd [place] [address], [facility] [phone] documented in this encounter Visit Diagnoses Not on filedocumented in this encounter
[2024-09-09 11:51] LABS: Influenza A QL RT-PCR Positive (Negative); Influenza B QL RT-PCR Negative (Negative); RSV RNA, RT-PCR Negative (Negative); SARS-CoV-2 RNA PCR Negative (Negative)
== END 2024-09-09 10:36 | disposition home or self-care (01) ==
LOC: ANHLAB 10:38
PROVIDERS: PCP Family Medicine; Visit Provider Family Medicine
DX: J06.9 Acute upper respiratory infection, unspecified (principal)
CPT/HCPCS: 87637